=== PATIENT | male | born 1950 | race Caucasian/White ===

== ENCOUNTER 2023-04-13 16:58 | Observation (INO) | payer MEDICARE ==
[2023-04-13] MEDS ORDERED: Ondansetron 4 MG/2 ML SDV IVPUSH ONE (17:15)
[2023-04-13] MEDS ORDERED: Sodium Chloride 0.9% 1,000 ML IV ONE (17:15)
[2023-04-13 17:28] LABS: HEMATOCRIT 41.2 % (40.0-52.0); HEMOGLOBIN 14.3 g/dL (14.0-18.0); MEAN CORPUSCULAR HEMOGLOBIN 33.5 pg (26.0-32.0); MEAN CORPUSCULAR HGB CONC 34.7 g/dL (32.0-36.0); MEAN CORPUSCULAR VOLUME 96.5 fL (78.0-93.0); PLATELET COUNT,PLT 321 x10^3/uL (130-400); RED BLOOD CELL COUNT 4.27 x10^6/uL (4.5-6.0); WHITE BLOOD CELL COUNT,WBC 11.8 x10^3/uL (4.0-10.0)
[2023-04-13 17:51] LABS: A/G RATIO 0.79; ALANINE AMINOTRANSFERASE,ALT 37 U/L (16-63); ALBUMIN 4.1 g/dL (3.4-5.0); ALKALINE PHOSPHATASE 117 U/L (46-116); ASPARTATE AMNIOTRANSFERASE,AST 23 U/L (15-37); BAND PERCENT MAN 5 % (0-6); BILIRUBIN TOTAL 0.9 mg/dL (0.2-1.0); BLOOD UREA NITROGEN,BUN 30 mg/dL (7-18); C-REACTIVE PROTEIN 0.33 mg/dL (<=0.30); CALCIUM 10.3 mg/dL (8.5-10.1); CARBON DIOXIDE,CO2 27 mmol/L (21-32); CHLORIDE,CL 97 mmol/L (98-107); CREATININE 1.8 mg/dL (0.70-1.30); GLUCOSE RANDOM 146 mg/dL (70-99); LIPASE 29 U/L (19-71); LYMPHOCYTES ABSOLUTE MAN 7.4 x10^3/uL (1.0-4.8); LYMPHOCYTES PERCENT MAN 52 % (25-50); MONOCYTES ABSOLUTE MAN 0.5 x10^3/uL (0.0-0.8); MONOCYTES PERCENT MAN 4 % (2-11); NEUTROPHILS ABSOLUTE MAN 3.9 x10^3/uL (1.8-7.7); POTASSIUM,K 4.4 mmol/L (3.5-5.1); PROTEIN TOTAL,TP 9.3 g/dL (6.4-8.2); SEG NEUTROPHILS PERCENT MAN 28 % (50-80); SODIUM,NA 136 mmol/L (136-145); TOXIC GRANULATION 1+ SLIGHT; VACUOLATED NEUTROPHILS 1+ SLIGHT
[2023-04-13 17:52] LABS: ANION GAP 16.4 mmol/L (5-15); ANISOCYTOSIS 1+ SLIGHT; ESTIMATED GFR 39 mL/min (>=60); GIANT PLATELETS RARE; PLATELET COUNT ESTIMATE ADEQUATE; POLYCHROMASIA RARE; ROULEAUX 1+ SLIGHT; SMUDGE CELLS RARE
[2023-04-13 18:48] LABS: APPEARANCE,URINE CLEAR (CLEAR); BILIRUBIN,URINE NEGATIVE (NEGATIVE); COLOR,URINE DARK YELLOW (YELLOW); GLUCOSE,URINE NEGATIVE (NEGATIVE); KETONES,URINE NEGATIVE (NEGATIVE); LEUKOCYTE ESTERASE,URINE NEGATIVE (NEGATIVE); NITRITE,URINE NEGATIVE (NEGATIVE); OCCULT BLOOD,URINE NEGATIVE (NEGATIVE); PROTEIN,URINE 30 mg/dL (NEGATIVE); UROBILINOGEN,URINE 0.2 EU/dL (0.2)
[2023-04-13 18:55] LABS: BACTERIA,URINE NOT SEEN /HPF (NOT SEEN); MUCUS,URINE MANY /LPF (NOT SEEN); RBC,URINE 0-5 /HPF (NOT SEEN); SQUAMOUS EPITHELIAL CELLS,UR FEW /HPF (NOT SEEN); WBC,URINE 0-5 /HPF (NOT SEEN)
[2023-04-13] MEDS ORDERED: Ondansetron 4 MG/2 ML SDV IV PRN (19:30)
[2023-04-13] MEDS ORDERED: Naloxone 0.4 MG/ML SDV IVPUSH PRN (19:32)
[2023-04-13] MEDS ORDERED: fentaNYL 50 MCG/ML SDV IVPUSH PRN (19:32)
[2023-04-13] MEDS: Sodium Chloride 0.9% 1,000 ML IV SCH (19:54)
[2023-04-14] MEDS: Sodium Chloride 0.9% 1,000 ML IV SCH (03:57)
== END 2023-04-14 14:00 | disposition home or self-care (01) ==
LOC: VM.ED 16:58 → VM.MS 19:21
PROVIDERS: ADMIT Physician Assistant Medical; ATTEND Physician Assistant Medical
DX: K56.609 Unspecified intestinal obstruction, unspecified as to partial versus complete obstruction (principal); N40.0 Benign prostatic hyperplasia without lower urinary tract symptoms; Z79.899 Other long term (current) drug therapy; Z79.82 Long term (current) use of aspirin; Z88.8 Allergy status to other drugs, medicaments and biological substances
CPT/HCPCS: 74176; 80053; 81001; 83690; 85025; 86140; 96361; 96374; 99285; J2405; J3010; J7030; 96375; G0378